=== PATIENT | female | born 1995 | race Caucasian/White ===

== ENCOUNTER 2022-10-27 08:31 | Outpatient (CLI) | payer MEDICARE, MEDICAID, SELFPAY ==
[2022-10-27 14:52] LABS: Albumin* 3.9 g/dL (3.3-5.0); Chloride* 108 mmol/L (96-114); Potassium* 4.2 mmol/L (3.6-5.1); Sodium* 138 mmol/L (135-149)
[2022-10-27 14:54] LABS: Bilirubin Total* 0.4 mg/dL (0.1-1.5); Creatinine* 0.7 mg/dL (0.5-1.5); Estimated Glomerular Filt Rate 121 ml/min
[2022-10-27 14:55] LABS: Alanine Aminotransferase* 22 U/L (4-35); Alkaline Phosphatase* 93 U/L (40-150); Aspartate Amino Transferase* 25 U/L (12-35); Blood Urea Nitrogen* 13 mg/dL (5-24); Carbon Dioxide* 22 mmol/L (20-32); Glucose* 86 mg/dL (60-115); Total Protein* 7.2 g/dL (6.0-8.3)
[2022-10-30 08:33] LABS: Clozapine, S/P, Quant 806 ng/mL; Clozapine-N-Oxide, S/P, Quant <100 ng/mL; Norclozapine, S/P, Quant 499 ng/mL; Total Clozapine & Metabolites 1305 ng/mL (<=1500)
== END 2022-10-27 08:32 | disposition home or self-care (01) ==
PROVIDERS: PCP Family Medicine; Visit Provider Family Medicine
DX: Z01.419 Encounter for gynecological examination (general) (routine) without abnormal findings (principal); R45.1 Restlessness and agitation; Z13.29 Encounter for screening for other suspected endocrine disorder; Z13.1 Encounter for screening for diabetes mellitus; Z13.0 Encounter for screening for diseases of the blood and blood-forming organs and certain disorders involving the immune mechanism
CPT/HCPCS: 80053; 80159; 84443

== ENCOUNTER 2023-12-23 10:10 | Emergency (ER) | payer MEDICARE, MEDICAID, SELFPAY ==
[2023-12-23 10:20] VITALS: BMI 21.0
--- NOTE | 2023-12-23 11:11 | ED.GENADULT ---
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 Patient slipped and fell while she was in the shower this morning and hit her head on the faucet. She did not lose consciousness. She has been acting normally since the accident occurred. She is not on any blood thinners. Water Sander was in the room at the time of the accident. Patient has a small laceration over the left parietal scalp. Related Data Home Medications Medication Instructions Recorded Confirmed acetaminophen 325 mg tablet 650 mg PO Q4H PRN 06/29/22 10/31/23 acetaminophen 500 mg tablet 1,000 mg PO Q6H PRN 06/29/22 10/31/23 quzmsrrothpxd-xfsefgbb-xezaiskdid 2 tab PO Q6H PRN 06/29/22 10/31/23 500 mg-60 mg-15 mg tablet (Midol Complete) benztropine 1 mg tablet 1 mg PO BID 06/29/22 10/31/23 buspirone 10 mg tablet 10 mg PO BID 06/29/22 10/31/23 clotrimazole 1 % topical cream 1 applic topical BID 06/29/22 10/31/23 clozapine 100 mg tablet 300 mg PO .HS 06/29/22 10/31/23 fluoxetine 40 mg capsule 40 mg PO QDAY 06/29/22 10/31/23 guaifenesin 100 mg/5 mL oral liquid 200 mg PO Q4H PRN 06/29/22 10/31/23 ibuprofen 200 mg tablet 200 - 400 mg PO Q4H PRN 06/29/22 10/31/23 loperamide 2 mg capsule 2 - 4 mg PO Q6H PRN 06/29/22 10/31/23 magnesium hydroxide 2,400 mg/10 mL 10 ml PO QDAY PRN 06/29/22 10/31/23 oral suspension (Milk Of Magnesia Concentrated) menthol 7.5 mg lozenges (Cough 7.5 mg PO Q2-4H PRN 06/29/22 10/31/23 Drops) propranolol 40 mg tablet 40 mg PO BID 06/29/22 10/31/23 clozapine 25 mg tablet 37.5 mg PO QHS 10/31/23 10/31/23 hydrocortisone 1 % topical cream 1 applic topical TID-QID PRN 10/31/23 10/31/23 (Anti-Itch (hydrocortisone)) lorazepam 1 mg tablet 1 mg PO BID PRN 10/31/23 10/31/23 lorazepam 2 mg tablet 2 mg PO QDAY 10/31/23 10/31/23 mouthwashes ea mucous membrane QHS 10/31/23 10/31/23 Previous Rx's Medication Instructions Recorded losartan 50 mg tablet 50 mg PO QDAY #90 tabs 03/01/23 ipratropium bromide 21 mcg (0.03 2 spray intranasal TID #30 mL 03/30/23 %) nasal spray norgestimate 0.25 mg-ethinyl 1 tab PO QDAY #84 tabs 11/07/23 estradiol 35 mcg tablet docusate sodium 50 mg/5 mL oral 100 mg (10 mL) PO QDAY #1,000 mL 11/15/23 liquid Allergies Allergy/AdvReac Type Severity Reaction Status Date / Time No Known Drug Allergies Allergy Verified 10/31/23 09:06 Review of Systems Status of ROS: Reports: 6 or more systems reviewed and unremarkable except as noted in History and below [facility] Surgical History Hx of tympanostomy tubes ?Z98.890 - Other specified postprocedural states (ICD-10) Social History Smoking Status: Never smoker Non-prescribed substance use: denies use Exam Narrative: Exam Narrative: Well-nourished well-developed patient in no acute distress. 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 Was cooperative. HEENT: Normocephalic . Pupils are equally round reactive to light. Extraocular muscles are intact. Conjunctivae are moist without any icterus noted. Moist mucous membranes. Poor dentition. Laceration to the left parietal scalp approximately half an inch in length. The laceration penetrates just into the dermis but does not penetrate through the dermis. Skin: Well perfused without any obvious rashes. No abnormal bruising noted. Course Course ED Course: Laceration was cleaned and Dermabond was applied. This was chosen over suturing as patient would have needed conscious sedation for suturing. Medical Decision Making MDM Narrative Medical decision making narrative: 28-year-old female laceration to the scalp. Treated per above. Discharge Plan Discharge Clinical Impression: Laceration Patient Disposition: Home w/ Parent or Adult Condition: Stable Additional Instructions: Okay to shower, avoid scrubbing the area. Watch for signs of infection which include redness or purulent drainage from the laceration. If this occurs follow-up with your primary care provider right away or return to the ER. Glue will fall off on its own. Prescriptions: No Action clozapine 25 mg tablet 37.5 mg PO QHS benztropine 1 mg tablet 1 mg PO BID buspirone 10 mg tablet 10 mg PO BID clozapine 100 mg tablet 300 mg PO .HS propranolol 40 mg tablet 40 mg PO BID fluoxetine 40 mg capsule 40 mg PO QDAY clotrimazole 1 % cream 1 applic topical BID Cough Drops 7.5 mg lozenge 7.5 mg PO Q2-4H PRN acetaminophen 325 mg tablet 650 mg PO Q4H PRN acetaminophen 500 mg tablet 1,000 mg PO Q6H PRN guaifenesin 100 mg/5 mL liquid 200 mg PO Q4H PRN ibuprofen 200 mg tablet 200 - 400 mg PO Q4H PRN loperamide 2 mg capsule 2 - 4 mg PO Q6H PRN Rx Instructions: 2 tablets after 1st loose bowel movement, followed by one tablet after each subsequent loose bowel movement. No more than 4 tablets per day. Do not use more than 2 days. Midol Complete 500-60-15 mg tablet 2 tab PO Q6H PRN magnesium hydroxide [Milk Of Magnesia Concentrated] 2,400 mg/10 mL suspension 10 ml PO QDAY PRN Rx Instructions: Give 2 tablespoons per day PRN. hydrocortisone [Anti-Itch (HC)] 1 % cream 1 applic topical TID-QID PRN lorazepam 1 mg tablet 1 mg PO BID PRN mouthwashes Aerosol,[place] mucous membrane QHS lorazepam 2 mg tablet 2 mg PO QDAY Rx Instructions: Take 2 mg by mouth 1.5 to 2 hrs prior to medical procedures and dental appointments. losartan 50 mg tablet 50 mg PO QDAY Qty: 90 3RF ipratropium bromide 21 mcg (0.03 %) spray,non-aerosol 2 spray intranasal TID Qty: 30 11RF norgestimate-ethinyl estradiol 0.25-35 mg-mcg tablet 1 tab PO QDAY Qty: 84 3RF docusate sodium 50 mg/5 mL liquid 100 mg PO QDAY Qty: 1000 5RF Follow Up/Referrals: Fan Mijares MD [Primary Care Provider] - Stand Alone Forms: [employer] Info Instructions
== END 2023-12-23 11:20 | disposition home or self-care (01) ==
PROVIDERS: Emergency Provider Family Medicine; PCP Family Medicine
DX: S01.01XA Laceration without foreign body of scalp, initial encounter (principal); W18.2XXA Fall in (into) shower or empty bathtub, initial encounter
CPT/HCPCS: 12001; 99283; 99284

== ENCOUNTER 2024-09-27 15:59 | Outpatient (CLI) | payer MEDICARE, MEDICAID, SELFPAY ==
[2024-09-27 16:29] LABS: Basophils Absolute Auto 0.01 K/uL (0.00-0.30); Basophils Percent Auto 0.1 % (0.0-3.0); Hematocrit 40.6 % (33.0-51.0); Hemoglobin* 13.7 gm/dL (12.0-16.0); Immature Granulocytes Abs Auto 0.02 K/uL (0.00-0.30); Immature Granulocytes Pct Auto 0.2 %; Lymphocytes Absolute Auto 1.82 K/uL (0.90-2.90); Lymphocytes Percent Auto 22.4 % (20-44); Mean Corpuscular HGB Conc 34 gm/dL (32-36); Mean Corpuscular Hemoglobin 32 pg (26-34); Mean Corpuscular Volume 96 fL (80-100); Monocytes Percent Auto 10.1 % (0.0-11.0); Neutrophils Absolute Auto 5.44 K/uL (1.7-7.0); Neutrophils Percent Auto 67.2 % (42.0-72.0); Platelet Count* 180 K/uL (140-440); RDW Coefficient of Variation % 12.2 % (11.5-15.5); Red Blood Count 4.24 m/uL (4.00-5.20); White Blood Count* 8.11 K/uL (4.50-11.00)
[2024-09-27 16:40] LABS: Slide Review Reflex No
== END 2024-09-27 16:00 | disposition home or self-care (01) ==
PROVIDERS: PCP Family Medicine; Visit Provider Nurse Practitioner Psychiatric/Mental Health
DX: Z79.899 Other long term (current) drug therapy (principal)
CPT/HCPCS: 36415; 85025

== ENCOUNTER 2024-10-23 13:22 | Outpatient (CLI) | payer MEDICARE, MEDICAID, SELFPAY ==
[2024-10-23 13:57] LABS: Hematocrit 37.3 % (33.0-51.0); Hemoglobin* 12.6 gm/dL (12.0-16.0); Immature Granulocytes Abs Auto 0.02 K/uL (0.00-0.30); Immature Granulocytes Pct Auto 0.2 %; Lymphocytes Percent Auto 28.4 % (20-44); Mean Corpuscular HGB Conc 34 gm/dL (32-36); Mean Corpuscular Hemoglobin 32 pg (26-34); Mean Corpuscular Volume 95 fL (80-100); Monocytes Percent Auto 7.1 % (0.0-11.0); Neutrophils Absolute Auto 6.12 K/uL (1.7-7.0); Neutrophils Percent Auto 64.3 % (42.0-72.0); Platelet Count* 191 K/uL (140-440); RDW Coefficient of Variation % 12.3 % (11.5-15.5); Red Blood Count 3.93 m/uL (4.00-5.20); White Blood Count* 9.52 K/uL (4.50-11.00)
[2024-10-23 14:07] LABS: Slide Review Reflex No
== END 2024-10-23 13:23 | disposition home or self-care (01) ==
PROVIDERS: PCP Family Medicine; Visit Provider Nurse Practitioner Psychiatric/Mental Health
DX: Z79.899 Other long term (current) drug therapy (principal)
CPT/HCPCS: 36415; 85025

== ENCOUNTER 2024-11-20 11:14 | Outpatient (CLI) | payer MEDICARE, MEDICAID, SELFPAY ==
[2024-11-20 11:38] LABS: Basophils Absolute Auto 0.01 K/uL (0.00-0.30); Basophils Percent Auto 0.1 % (0.0-3.0); Hematocrit 39.9 % (33.0-51.0); Hemoglobin* 13.5 gm/dL (12.0-16.0); Immature Granulocytes Abs Auto 0.02 K/uL (0.00-0.30); Immature Granulocytes Pct Auto 0.3 %; Lymphocytes Absolute Auto 2.57 K/uL (0.90-2.90); Lymphocytes Percent Auto 34.2 % (20-44); Mean Corpuscular HGB Conc 34 gm/dL (32-36); Mean Corpuscular Hemoglobin 32 pg (26-34); Mean Corpuscular Volume 95 fL (80-100); Monocytes Percent Auto 9.3 % (0.0-11.0); Neutrophils Absolute Auto 4.21 K/uL (1.7-7.0); Neutrophils Percent Auto 56.1 % (42.0-72.0); Platelet Count* 171 K/uL (140-440); RDW Coefficient of Variation % 12.4 % (11.5-15.5); Red Blood Count 4.21 m/uL (4.00-5.20); White Blood Count* 7.51 K/uL (4.50-11.00)
[2024-11-20 11:42] LABS: Slide Review Reflex No
== END 2024-11-20 11:15 | disposition home or self-care (01) ==
PROVIDERS: PCP Family Medicine; Visit Provider Nurse Practitioner Psychiatric/Mental Health
DX: Z79.899 Other long term (current) drug therapy (principal)
CPT/HCPCS: 36415; 85025

== ENCOUNTER 2025-08-28 11:37 | Outpatient (RCR) | payer MEDICARE, MEDICAID, SELFPAY ==
[2024-12-19 12:04] LABS: Hematocrit* 42.8 % (33.0-51.0); Hemoglobin* 14.4 gm/dL (12.0-16.0); Immature Granulocytes Abs Auto 0.02 K/uL (0.00-0.30); Immature Granulocytes Pct Auto 0.3 %; Lymphocytes Absolute Auto 2.25 K/uL (0.90-2.90); Mean Corpuscular HGB Conc 34 gm/dL (32-36); Mean Corpuscular Hemoglobin 32 pg (26-34); Mean Corpuscular Volume 96 fL (80-100); RDW Coefficient of Variation % 12.6 % (11.5-15.5); Red Blood Count* 4.45 m/uL (4.00-5.20); White Blood Count* 6.59 K/uL (4.50-11.00)
[2024-12-19 12:12] LABS: Slide Review Reflex No
[2025-01-15 12:58] LABS: Hematocrit* 39.0 % (33.0-51.0); Hemoglobin* 13.3 gm/dL (12.0-16.0); Immature Granulocytes Abs Auto 0.03 K/uL (0.00-0.30); Immature Granulocytes Pct Auto 0.3 %; Lymphocytes Absolute Auto 3.10 K/uL (0.90-2.90); Mean Corpuscular HGB Conc 34 gm/dL (32-36); Mean Corpuscular Hemoglobin 33 pg (26-34); Mean Corpuscular Volume 95 fL (80-100); RDW Coefficient of Variation % 12.3 % (11.5-15.5); Red Blood Count* 4.09 m/uL (4.00-5.20); White Blood Count* 9.34 K/uL (4.50-11.00)
[2025-01-15 13:10] LABS: Slide Review Reflex No
[2025-02-12 12:39] LABS: Hematocrit* 37.4 % (33.0-51.0); Hemoglobin* 12.8 gm/dL (12.0-16.0); Immature Granulocytes Abs Auto 0.04 K/uL (0.00-0.30); Immature Granulocytes Pct Auto 0.5 %; Lymphocytes Absolute Auto 2.65 K/uL (0.90-2.90); Mean Corpuscular HGB Conc 34 gm/dL (32-36); Mean Corpuscular Hemoglobin 33 pg (26-34); Mean Corpuscular Volume 96 fL (80-100); RDW Coefficient of Variation % 12.2 % (11.5-15.5); Red Blood Count* 3.90 m/uL (4.00-5.20); Slide Review Reflex No; White Blood Count* 7.48 K/uL (4.50-11.00)
[2025-03-12 12:14] LABS: Hematocrit* 39.8 % (33.0-51.0); Hemoglobin* 13.6 gm/dL (12.0-16.0); Immature Granulocytes Abs Auto 0.03 K/uL (0.00-0.30); Immature Granulocytes Pct Auto 0.3 %; Lymphocytes Absolute Auto 2.71 K/uL (0.90-2.90); Mean Corpuscular HGB Conc 34 gm/dL (32-36); Mean Corpuscular Hemoglobin 33 pg (26-34); Mean Corpuscular Volume 96 fL (80-100); RDW Coefficient of Variation % 11.9 % (11.5-15.5); Red Blood Count* 4.16 m/uL (4.00-5.20); White Blood Count* 8.71 K/uL (4.50-11.00)
[2025-03-12 12:17] LABS: Slide Review Reflex No
[2025-04-09 11:47] LABS: Hematocrit* 41.0 % (33.0-51.0); Hemoglobin* 14.0 gm/dL (12.0-16.0); Immature Granulocytes Abs Auto 0.02 K/uL (0.00-0.30); Immature Granulocytes Pct Auto 0.3 %; Mean Corpuscular HGB Conc 34 gm/dL (32-36); Mean Corpuscular Hemoglobin 33 pg (26-34); Mean Corpuscular Volume 96 fL (80-100); RDW Coefficient of Variation % 11.7 % (11.5-15.5); Red Blood Count* 4.27 m/uL (4.00-5.20); White Blood Count* 6.70 K/uL (4.50-11.00)
[2025-04-09 11:49] LABS: Lymphocytes Absolute Auto 3.10 K/uL (0.90-2.90); Slide Review Reflex No
[2025-05-07 11:45] LABS: Hematocrit* 40.0 % (33.0-51.0); Hemoglobin* 13.6 gm/dL (12.0-16.0); Immature Granulocytes Abs Auto 0.02 K/uL (0.00-0.30); Immature Granulocytes Pct Auto 0.3 %; Mean Corpuscular HGB Conc 34 gm/dL (32-36); Mean Corpuscular Hemoglobin 33 pg (26-34); Mean Corpuscular Volume 96 fL (80-100); RDW Coefficient of Variation % 12.0 % (11.5-15.5); Red Blood Count* 4.19 m/uL (4.00-5.20); White Blood Count* 6.61 K/uL (4.50-11.00)
[2025-05-07 11:46] LABS: Lymphocytes Absolute Auto 3.10 K/uL (0.90-2.90); Slide Review Reflex No
[2025-06-05 11:55] LABS: Hematocrit* 39.2 % (33.0-51.0); Hemoglobin* 13.4 gm/dL (12.0-16.0); Immature Granulocytes Abs Auto 0.04 K/uL (0.00-0.30); Immature Granulocytes Pct Auto 0.5 %; Lymphocytes Absolute Auto 2.53 K/uL (0.90-2.90); Mean Corpuscular HGB Conc 34 gm/dL (32-36); Mean Corpuscular Hemoglobin 33 pg (26-34); Mean Corpuscular Volume 95 fL (80-100); RDW Coefficient of Variation % 12.4 % (11.5-15.5); Red Blood Count* 4.12 m/uL (4.00-5.20); White Blood Count* 8.70 K/uL (4.50-11.00)
[2025-06-05 12:03] LABS: Slide Review Reflex No
[2025-07-03 11:56] LABS: Hematocrit* 41.6 % (33.0-51.0); Hemoglobin* 14.2 gm/dL (12.0-16.0); Immature Granulocytes Abs Auto 0.03 K/uL (0.00-0.30); Immature Granulocytes Pct Auto 0.4 %; Lymphocytes Absolute Auto 2.55 K/uL (0.90-2.90); Mean Corpuscular HGB Conc 34 gm/dL (32-36); Mean Corpuscular Hemoglobin 33 pg (26-34); Mean Corpuscular Volume 96 fL (80-100); RDW Coefficient of Variation % 11.8 % (11.5-15.5); Red Blood Count* 4.35 m/uL (4.00-5.20); White Blood Count* 7.07 K/uL (4.50-11.00)
[2025-07-03 11:57] LABS: Slide Review Reflex No
[2025-07-31 13:19] LABS: Hematocrit* 42.2 % (33.0-51.0); Hemoglobin* 14.5 gm/dL (12.0-16.0); Immature Granulocytes Abs Auto 0.03 K/uL (0.00-0.30); Immature Granulocytes Pct Auto 0.3 %; Lymphocytes Absolute Auto 2.92 K/uL (0.90-2.90); Mean Corpuscular HGB Conc 34 gm/dL (32-36); Mean Corpuscular Hemoglobin 33 pg (26-34); Mean Corpuscular Volume 95 fL (80-100); RDW Coefficient of Variation % 11.8 % (11.5-15.5); Red Blood Count* 4.43 m/uL (4.00-5.20); White Blood Count* 8.72 K/uL (4.50-11.00)
[2025-07-31 13:55] LABS: Slide Review Reflex No
[2025-08-28 11:57] LABS: Hematocrit* 39.2 % (33.0-51.0); Hemoglobin* 13.4 gm/dL (12.0-16.0); Immature Granulocytes Abs Auto 0.02 K/uL (0.00-0.30); Immature Granulocytes Pct Auto 0.3 %; Lymphocytes Absolute Auto 2.97 K/uL (0.90-2.90); Mean Corpuscular HGB Conc 34 gm/dL (32-36); Mean Corpuscular Hemoglobin 33 pg (26-34); Mean Corpuscular Volume 97 fL (80-100); RDW Coefficient of Variation % 12.0 % (11.5-15.5); Red Blood Count* 4.06 m/uL (4.00-5.20); White Blood Count* 7.90 K/uL (4.50-11.00)
[2025-08-28 11:58] LABS: Slide Review Reflex No
== END 2025-09-25 15:38 | disposition home or self-care (01) ==
LOC: LAB 11:37
PROVIDERS: PCP Family Medicine; Visit Provider Nurse Practitioner Psychiatric/Mental Health
DX: Z79.899 Other long term (current) drug therapy (principal)
CPT/HCPCS: 36415; 85025